=== PATIENT | male | born 1955 | race Caucasian/White ===

== ENCOUNTER 2016-05-02 02:00 | Inpatient (IN) | payer OTHER ==
[~2016-05-02] VITALS: Ht 182.9 cm; Wt 97.5 kg
[2016-05-02] MEDS ORDERED: SUBOXONE 8 MG-1 EACH SL (08:13)
[2016-05-02] MEDS ORDERED: ZESTRIL40 M1 PO (08:13)
[2016-05-02] MEDS ORDERED: FLOMAX0.4 M1 PO (08:14)
[2016-05-02] MEDS ORDERED: HYDROCHLOROTHIA25 M1 PO (08:14)
--- NOTE | 2016-05-02 08:33 | Admission Core Measures ---
Admission Meds I reviewed the following Meds: Current Medications Sig/Nuris Start time Last Medication Dose Stop Time Status Admin Acetaminophen 975 MG ONCE 05/02 0000 NR (Tylenol) 05/02 2358 Hydrochlorothiazide 25 MG DAILY 05/02 999 UNVr (Hydrodiuril) Lisinopril 40 MG DAILY 05/02 999 UNVr (Prinivil) Oxycodone HCl 10 MG ONCE 05/02 0000 NR (Roxicodone) 05/02 2358 Tamsulosin HCl 0.4 MG DAILY 05/02 999 UNVr (Flomax) Acute Coronary Syndrome Inclusion Criteria ACS Diagnosis No Inpatient Core Measures LDL Reminder: If No, please order W/I first 24hr of stay Congestive Heart Failure Inclusion Criteria CHF Diagnosis No Cerebrovascular accident Inclusion Criteria CVA/TIA Diagnosis No Inpatient Core Measures Bedside Swallow Eval Reminder: If BSE failed, place ST order Antithrombotic Reminder: Order Antithrombotic Medication by end of day 2 Antithrombotic Reminder: Document Reason Antithrombotic Not ordered by end of day 2 AFIB/Flutter Reminder: If Present, add to problem list AFIB/Flutter Reminder: Order Anticoag Medication for pts with AFIB/Flutter Atherosclerosis Reminder: If Present, add to problem list LDL Reminder: If No, please order W/I first 24hr of stay PT Order Reminder: If No, please order Venous thromboembolism Inpatient Core Measures VTE Risk Factors: Age > 40, Surgery VTE Prophylaxis Ordered Inpt Mech & Pharm No Mech VTE prophylaxis d/t No contraindications No VTE Pharm Prophylaxis d/t No contraindications Inclusion Criteria - Per Current guidelines, there needs to be overlap - treatment for the first 5 days of Warfarin therapy. - Parenteral Anticoagulation (IV or SC) needs to be - given along with Warfarin therapy. VTE Diagnosis No VTE Type NONE VTE Confirmed by (Test) NONE Problem List As ranked by this Provider includes Assessment & Plan 1. Status post total hip replacement, right HOME MEDS Home Med List Buprenorphine HCl/Naloxone HCl (Suboxone 8 MG-2 MG Sl Film) 8 MG-2 MG FILM 1 STR SL DAILY narcotic abuse (Reported) Hydrochlorothiazide 25 MG TABLET 1 TAB PO DAILY BP (Reported) Lisinopril (Zestril) 40 MG TABLET 1 TAB PO DAILY bp (Reported) Tamsulosin HCl (Flomax) 0.4 MG CAP.ER.24H 1 CAP PO DAILY urinary stream issues (Reported)
--- NOTE | 2016-05-02 08:35 | Surg Short-stay <48hrs Dis Sum ---
Visit Information Visit Dates Admission Date: 05/02/16 Discharge Date: 05/02/2016 Surgical Short Stay DC Summary Admission Diagnosis: JOINT PAIN Final Diagnosis: SAME, S/P R CAROLE Procedure(s): R CAROLE - see operatibe report Summary/Significant Findings: Pt underwent R CAROLE by Dr Toure. He tolerated the procedure well and was brought to the recovery room in stable condition. He was able to tolerated a diet, void spontaneously, his pain was controlled and he was seen by physical therapy and cleared for discharge home with home PT and home nursing services. Of note, pt takes suboxone and has confirmed at admission that he stopped taking it 4 days pre-op. He was told by the prescribing MD in [place] that he shouldn't restart it until following up in post op. This has been re-confirmed with the Pt. Dr Toure aware. Condition at Discharge: good Discharge Disposition: home health services Discharge instructions provided to patient/family: Yes Post discharge follow-up plan: Keep scheduled appt with Dr Toure. Follow up with primary MD for suboxone continuation.
--- NOTE | 2016-05-02 08:37 | Patient Discharge Instructions ---
Discharge Instructions General Discharge Information You were seen/treated for: Joint pain You had these procedures: Right total hip replacement Watch for these problems: See pre printed sheet Other wound care: See pre printed sheet Special Instructions: Do not restart suboxone until follow up with prescribing MD. Diet Continue normal diet: Yes Activity Activity Self Limited: Yes Activity Limited to: Weight bear as tolerated Acute Coronary Syndrome Inclusion Criteria At DC or during hospital stay patient has or had the following: ACS DIAGNOSIS No Discharge Core Measures Meds if any: Prescribed or Continued at Discharge Meds if any: NOT Prescribed or Continued at Discharge Congestive Heart Failure Inclusion Criteria At DC or during hospital stay patient has or had the following: CHF DIAGNOSIS No Discharge Core Measures Meds if any: Prescribed or Continued at Discharge Meds if any: NOT Prescribed or Continued at Discharge Cerebrovascular accident Inclusion Criteria At DC or during hospital stay patient has or had the following: CVA/TIA Diagnosis No Discharge Core Measures Meds if any: Prescribed or Continued at Discharge Meds if any: NOT Prescribed or Continued at Discharge Venous thromboembolism Inclusion Criteria VTE Diagnosis No VTE Type NONE VTE Confirmed by (Test) NONE Discharge Core Measures - Per Current guidelines, there needs to be overlap - treatment for the first 5 days of Warfarin therapy. - If discharged on Warfarin prior to 5 days of - overlap therapy, the patient will need to be - assessed for post discharge needs including - *Post discharge parental anticoagulation - *Warfarin and/or parental anticoagulation education - *Follow up date to check INR post discharge At least 5 days overlap therapy as Inpatient No Meds if any: Prescribed or Continued at Discharge Note: Overlap Therapy is Warfarin and Anticoagulant Meds if any: NOT Prescribed or Continued at Discharge
[2016-05-02] MEDS ORDERED: DILAUDID2 M1 PO (08:39)
[2016-05-02] MEDS ORDERED: COLACE100 M1 PO (08:39)
[2016-05-02] MEDS ORDERED: MS CONTIN30 M1 PO (08:39)
[2016-05-02] MEDS ORDERED: MIRALAX17 G1 PO (08:39)
[2016-05-02] MEDS ORDERED: ASPIRIN EC325 M2 PO (08:39)
--- NOTE | 2016-05-02 12:37 | RADIOLOGY REPORT ---
EXAMINATION: XR HIP, RIGHT CLINICAL INFORMATION: Right total hip replacement. COMPARISON: None TECHNIQUE: Two views of the right hip. FINDINGS: A right total hip replacement is present which appears to be in good position without evidence of fracture or loosening. IMPRESSION: Normal postsurgical appearances right total hip.
[2016-05-02 13:10] VITALS: BP 118/60
--- NOTE | 2016-05-02 13:10 | NUR ---
NURSING NOTE: PT ARRIVED TO FLOOR VIA STRETCHER WITH DISTRIBUTION FROM PACU S/P R HIP SURGERY, VITALS OBTAIBEDM PT AMBULATED WITH ASSIST X2 IN HALLWAY WITH P.T. STILL WITH NUMBNESS FROM ANESTHESIA. PT AWAKE, A/OX3, DENIES NEED FOR PAIN MEDS, ROOM AIR, IVF. ALPS/TEDS. SEE ADMISSION ASSESSMENT, INFOR PACKET GIVEN, HOULRUY ROUNDING EXPLAINED.
--- NOTE | 2016-05-02 13:13 | PN- Orthopedic ---
Subjective Subjective: Awake, alert post op Denies nausea, pain well controlled at this time Has not voided yet. Objective Vital Signs and I&Os VSS, afebrile General: alert and oriented times three Chest:clear anteriorly bilaterally, RRR Abd: soft, good bs Ext: warm, no edema, positive sensate, no calf tenderness, good strength BLE Wound: dressed, dry, ice pack in place Assessment/Plan Assessment/Plan 60 yo male s/p R CAROLE await void PT to see - WBAT Pain mgmt ASA 325mg po bid for dvt ppx will dc if cleared by PT and pt desires Core Measures/Miscellaneous Venous Thromboembolism VTE Risk Factors: Age > 40, Surgery VTE Contraindications: No Contraindications VTE Prophylaxis Ordered Inpt: Mech & Pharm VTE Diagnosis: No VTE Type: NONE VTE Confirmed by (Test): NONE Beta Herb Is Beta Herb a Home Med? No Antibiotics Is Patient on Antibiotics? Yes If Yes: prophylaxis (24 hrs post op)
[2016-05-02 16:19] VITALS: BP 118/64
--- NOTE | 2016-05-02 16:47 | Operative Report ---
Operative/Inv Procedure Report Surgery Date: 05/02/16 Name of Procedure: Right total hip replacement Pre-Operative Diagnosis: Primary right hip DJD Post-Operative Diagnosis: Same Estimated Blood Loss: 350 Surgeon/Corporate Quality Assurance Manager: ELIEZER PRICE,GABINO Bess Anesthesia: block Operative/Procedure Note Note: Description of Procedure: The patient was taken to the operating room and positively identified. After induction of spinal anesthesia and administration of appropriate pre-operative antibiotics, the patient was positioned supine on the operating room table and all bony prominences were well padded. After performing a surgical timeout, the right lower extremity was prepped and draped in the usual sterile fashion. A direct anterior approach was made to the right hip. The incision was carried sharply through superficial soft tissues to the level of the fascia. Meticulous hemostasis was maintained with Bovie electocautery. The fascia over the tensor fascia gabe muscle was opened sharply and the interval between the TFL and the sartorius was entered bluntly taking care to stay lateral to the lateral femoral cutaneous nerve. Retractors were placed around the femoral neck and the pericapsular fat was identified. The ascending branches of the lateral femoral circumflex vessels were identified and carefully coagulated. The pericapsular fat and anterior capsule were then resected. A napkin ring osteotomy was performed and the femoral head was removed without difficulty. Attention was then turned to the acetabulum. After appropriate placement of retractors, the acetabulum was exposed. Soft tissue was cleaned from the acetabular margin and notch. Overhanging osteophytes were removed and the teardrop was exposed. The acetabulum was then sequentially reamed to accept a 62 mm Екатерина Tritanium hemispherical cluster hole shell. This was impacted into place in the appropriate position and fitted with a 36 mm Trident X3 zero degree polyethylene insert. Attention was then turned to the femur. After performing the appropriate ligament releases, the proximal femur was exposed. It was then sequentially broached to accept a size 6 Екатерина accolade 2 stem. This was trialed for leg length and stability. The trial component was removed and the final component was impacted into place. The trunnion was carefully cleaned and fit with a 36 mm, +0 Biolox delta ceramic femoral head. The hip was reduced and put through a full range of motion and found to be stable. The articular space was then irrigated with sterile saline. The periarticular soft tissues were infilitrated with Marcaine. The fascial layer was closed with interrupted #1 vicryl suture and the skin was re-approximated with interrupted 2 -0 vicryl. The skin was closed with a running 3-0 V-Lock suture. Steri-strips and a sterile dressing were applied. The patient was awakened and taken to the recovery room in satisfactory condition.
--- NOTE | 2016-05-02 19:40 | NUR ---
1600 ALERT AND ORIENTED X 3. VITAL SIGNS STABLE. ON ROOM AIR MEDICATION GIVEN FOR PAIN. DSG IS CLEAN, DRY AND INTACT 1800 PATIENT RESTING AT THIS TIME VERBALIZED UNDERSTANDING OF DISCHARGE INSTRUCTIONS
== END 2016-05-02 18:46 | DRG 470 ==
LOC: ENRESERVTM → ENRESERVDT → SDA 02:00 → ENPENDDIS 02:00 → 2NB 13:11
PROVIDERS: ADMIT Orthopaedic Surgery
PROC: 0SR904A Replacement of Right Hip Joint with Ceramic on Polyethylene Synthetic Substitute, Uncemented, Open Approach (ICD-10-PCS; principal; 2016-05-02)
DX: M16.11 Unilateral primary osteoarthritis, right hip (principal); I10 Essential (primary) hypertension; E29.1 Testicular hypofunction
CPT/HCPCS: 2NBSP; 73502-RT; 88304; 97116-GO; 97161-GP; 97530-GO; J0690; J0735; J1100; J1885; J2250; J2405; J3010; J7042